=== PATIENT | female | born 1960 | race Caucasian/White ===

== ENCOUNTER 2023-12-20 14:03 | Outpatient (REF) | payer OTHER, SELFPAY | END 2023-12-20 14:04 | disposition home or self-care (01) | LOC: HO.CHCLNP 14:03 | PROVIDERS: Visit Provider Family Medicine | DX: Z12.4 Encounter for screening for malignant neoplasm of cervix (principal) | CPT/HCPCS: 36415; 88175 ==

== ENCOUNTER 2024-12-28 13:55 | Outpatient (REF) | payer OTHER, SELFPAY ==
--- OUTSIDE RECORDS SUMMARY | 2024-12-28 14:00 | XMS_ITS | Encounter Summary ---
Author Organization [employer] Address [address] [place] [address] Care Team Providers Care Ground Support Equipment Fitter Name Role Phone Kelsey Steve MD Primary Care Provider [phone] Encounter Details Date Type Department Care Team (Latest Contact Info) Description 12/28/2024 Travel Social History Tobacco Use Types Packs/Day Years Used Date Smoking Tobacco: Never Passive Smoke Exposure: Never Smokeless Tobacco: Never Alcohol Use Standard Drinks/Week Comments Never 0 (1 standard drink = 0.6 oz pur e alcohol) Housing Stability Answer Date Recorded What is your housing situation today? I have [employer] craft 01/18/[address] you li ve. Do you have problems with any of the following? None of the above 01/18/2024 Food Insecurity Answer Date Recorded Within the past 12 months, y ou worried that your food would run out before you got money to buy more: Never True 01/18/2024 Within the past 12 months,th e food you bought just didn't last and you didn't have enough money to get more: Never True Transportation Answer Date Recorded In the past 12 months, has l ack of transportation kept you from medical appts, meetings, work or from getting things needed for daily living? No 01/18/2024 Utilities Answer Date Recorded In the past 12 months, has t he electric, gas, oil or water company threatened to shut off services in your home? No 01/18/2024 Internet Access Answer Date Recorded Internet Access Q1 Yes 01/30/2024 Internet Access Q2 Not on file 01/30/2024 Comments No Sex and Gender Information Value Date Recorded Sex Assigned at Female 08/12/2023 10:54 AM EDT Legal Sex Female 4:26 PM EDT Gender Identity Female 08/12/2023 10:54 AM EDT Sexual Orientation Straight 10/21/2023 12 :14 PM EDT documented as of this encounter Plan of Treatment Not on file documented as of this encounter Visit Diagnoses Not on filedocumented in this encounter Care Teams Ground Support Equipment Fitter Relationship Specialty Start Date End Date Kelsey Steve MD [address] [place] [address] PCP - General Family Medicine 10/21/23 documented as of this encounter
--- OUTSIDE RECORDS SUMMARY | 2024-12-28 14:00 | XMS_ITS | Clinical Summary ---
Author Organization [facility] Address [address] [place] [address] Phone Care Team Providers Care Sports Management Professor Name Role Phone Kelsey Steve MD Primary Care Provider [phone] Allergies Active Allergy Reactions Criticality Noted Date Comments Naproxen 01/06/2024 Medications aspirin 81 mg EC tablet Take 1 Tablet by mouth daily. Active cetirizine (ZyrTEC) 10 mg tablet Take 1 Tablet by mouth daily. Active Medical History Medical History Date Comments Chronic right shoulder pain DX:C hronic right shoulder pain Arthritis of right shoulder region DX:Arthritis of right shoulder region Obesity DX:Obesity Seasonal allergies DX:Seasonal a llergies Mixed hyperlipidemia DX:Mixed hy perlipidemia Insomnia DX:Insomnia Family History Medical History Relation Name Comments Heart attack Maternal Grandmother Asthma Mother Relation Name Status Comments Maternal Grandmother Mother Social History Tobacco Use Types Packs/Day Years Used Date Smoking Tobacco: Never Assessed Comments Unknown Sex and Gender Information Value Date Recorded Sex Assigned at Female 04/19/2024 2:54 PM EST Legal Sex Female 1:35 PM EDT Gender Identity Female 04/19/2024 2:54 PM EST Sexual Orientation Straight 04/19/2024 2: 54 PM EST Obstetrics History Plan of Treatment Health Maintenance Due Date Last Done Comments Breast Cancer Screening 1960 DTaP,Tdap,and Td Vaccines (1 - Tdap) 01/14/1979 Cervical Cancer Screening: P ap Smear 01/14/1981 Pneumococcal Vaccine: 50+ Years (1 of 1 - PCV) 01/14/2010 Zoster Vaccines (1 of 2) 01/14/2010 Cholesterol Screening (Lipid Panel) 12/27/2023 Colorectal Cancer Screening: Colonoscopy 12/27/2023 HIV Screening 12/27/2023 Hepatitis C Screening 12/27/2023 Medicare Annual Wellness Visit 12/27/2023 Social Influencers of Health Screening 12/27/2023 COVID-19 Vaccine (4 - 2023-2 5 season) 2024 11/25/2021, 02/09/2021, 01/12/2021 Depression Screening 05/30/2024 Influenza Vaccine (#1) 2025 02/17/2024 RSV Immunization Adult Patients (1 - 1-dose 75+ series) 01/14/2035 HIB Vaccines Aged Out No longer eligi ble based on patient's age to complete this topic HPV Vaccines Aged Out No longer eligi ble based on patient's age to complete this topic Hepatitis A Vaccines Aged Out No long er eligible based on patient's age to complete this topic Hepatitis B Vaccines Aged Out No long er eligible based on patient's age to complete this topic IPV Vaccines Aged Out No longer eligi ble based on patient's age to complete this topic MMR Vaccines Aged Out No longer eligi ble based on patient's age to complete this topic Meningococcal ACWY Vaccine Aged Out N o longer eligible based on patient's age to complete this topic Meningococcal B Vaccine Aged Out No l onger eligible based on patient's age to complete this topic RSV Immunization Patients Under 20 months Aged Out No longer eligible b ased on patient's age to complete this topic Varicella Vaccines Aged Out No longer eligible based on patient's age to complete this topic Goals Goal Patient Goal Type Associated Problems Recent Progress Patient-Stated? Author STG in 4 weeks General No Leonor Suarez, PT Note: Short Term Goals 1. Initiate home exercise program. 2. Pain will be improved by 2-3 points on VAS. 3. Patient will improve shoulder/elbow strength by 1/3 grade on manual muscle testing. 4. Patient will improve shoulder flexion ROM to 115 or more. LTG in 8-12 weeks General No Leonor Suarez, PT Note: Cloth Bleaching Range Tender Goals 1. Patient will be independent with home exercise program to maintain therapeutic gains. 2. Patient will achieve functional shoulder AROM for ADLs/IADLs 3. Patient will have function 4/5 strength or greater for ADLs/IADLs. Insurance [facility] MEDICARE Member Subscriber Plan / Payer ( fective 2021-Present) Name:MARÍA COE Relation to Subscriber:Self Name:María Coe Payer ID:[id number] Group ID:[id number] Type:Not on file Address: [address] [place] [address] [facility] MEDICARE Member Subscriber Plan / Payer ( fective 2021-Present) Name:MARÍA COE Relation to Subscriber:Self Name:María Coe Payer ID:[id number] Group ID:[id number] Type:Not on file Address: [address] [place] [address] Care Teams Sports Management Professor Relationship Specialty Start Date End Date Kelsey Steve MD [address] [place] [phone] PCP - General Family Medicine 04/19/24
[2024-12-28 15:49] LABS: MANUAL DIFF FLAG NO
[2024-12-28 15:52] LABS: Hematocrit 38.9 % (37.0-47.0); Hemoglobin 13.8 g/dl (12.0-16.0); Imm Gran Abs Auto 0.01 X10*3/uL (0.00-0.03); Imm Gran Pct Auto 0.1 % (0.0-0.4); Lymphocytes Absolute Auto 3.1 X10*3/uL (1.2-4.9); Mean Corpuscular HGB Conc 35.5 g/dl (31.0-35.0); Mean Corpuscular Hemoglobin 28.5 pg (27.0-33.0); Mean Corpuscular Volume 80.2 fL (80.0-98.0); NRBC Abs Auto 0.000 X10*3/uL (0.0-0.012); NRBC Pct Auto 0.0 /100WBC (0.0-0.2); Platelet Count 271 X10*3/uL (160-400); Red Blood Count 4.85 X10*6/uL (4.20-5.50); White Blood Count 8.7 X10*3/uL (4.8-10.8)
[2024-12-28 16:22] LABS: Alanine Aminotransferase 28 U/L (0-31); Albumin Level 4.6 g/dL (3.5-5.0); Alkaline Phosphatase 87 U/L (39-117); Anion Gap 12 (12-20); Aspartate Amino Transferase 25 U/L (5-31); Blood Urea Nitrogen 8 mg/dL (9-16); Calcium 9.1 mg/dL (8.4-10.2); Carbon Dioxide 28 mmol/L (22-29); Chloride 108 mmol/L (96-108); Cholesterol 193 mg/dL (<200); Estimated Glomerular Filt Rate > 60; HDL Cholesterol 48 mg/dL (>40); Potassium 3.6 mmol/L (3.3-5.1); Sodium 144 mmol/L (135-145); Total Protein 7.6 g/dL (6.5-8.0); Triglycerides 224 mg/dL (<150)
[2024-12-28 16:52] LABS: Folate 14.1 ng/mL (> or = 4.0); Vitamin B12 741 pg/mL (200-900)
[2024-12-29 03:29] LABS: HIV Num 1 0.06 S/CO (0.00-0.99); ~HepC Num1 0.13 S/CO (0.00-0.79); ~Hepatitis C Antibody Nonreactive (Nonreactive)
== END 2024-12-28 13:56 | disposition home or self-care (01) ==
LOC: HO.CHCLDS 13:55
PROVIDERS: Visit Provider Family Medicine
DX: Z11.4 Encounter for screening for human immunodeficiency virus [HIV] (principal); Z11.59 Encounter for screening for other viral diseases; E66.811 Obesity, class 1
CPT/HCPCS: 36415; 80053; 80061; 82306; 82607; 82746; 84443; 85025; 86803; 87389